=== PATIENT | female | born 1960 | race Caucasian/White ===

== ENCOUNTER → 2016-08-09 | Outpatient (CLI) | payer BC ==
[2016-08-09 09:06] LABS: CARBON DIOXIDE 25 mEq/L (21-32); CHLORIDE 106 mEq/L (98-107)
[2016-08-10 13:08] LABS: *CREATININE RANDOM URINE 145.6 mg/dL (Not Estab.); MICROALBUMIN RANDOM URINE 18.4 ug/mL (Not Estab.); MICROALBUMIN/CREATININE RATIO 12.6 mg/g creat (0.0-30.0)
== END | disposition home or self-care (01) ==
LOC: LAB 08:18
PROVIDERS: ATTEND Family Medicine
DX: E11.65 Type 2 diabetes mellitus with hyperglycemia (principal)
CPT/HCPCS: 36415; 80053; 82043; 82570; 83036

== ENCOUNTER → 2017-02-22 | Outpatient (CLI) | payer BC ==
[2017-02-22 10:02] LABS: CARBON DIOXIDE 26 mEq/L (21-32); CHLORIDE 107 mEq/L (98-107)
== END | disposition home or self-care (01) ==
LOC: LAB 07:48
PROVIDERS: ATTEND Family Medicine
DX: E11.65 Type 2 diabetes mellitus with hyperglycemia (principal)
CPT/HCPCS: 36415; 80053; 83036

== ENCOUNTER → 2018-04-22 | Outpatient (CLI) | payer BC ==
[2018-04-22 08:18] LABS: CHLORIDE 105 mEq/L (98-107)
[2018-04-22 08:27] LABS: LDL CHOLESTEROL 140 mg/dL (5-100)
[2018-04-22 08:29] LABS: HDL CHOLESTEROL 44 mg/dL (40-59)
[2018-04-23 13:06] LABS: *CREATININE RANDOM URINE 84.5 mg/dL (Not Estab.)
== END | disposition home or self-care (01) ==
LOC: LAB 07:34
PROVIDERS: ATTEND Family Medicine
DX: E11.69 Type 2 diabetes mellitus with other specified complication (principal); E78.6 Lipoprotein deficiency; E78.5 Hyperlipidemia, unspecified; I10 Essential (primary) hypertension
CPT/HCPCS: 36415; 80061; 82043; 82570; 83036